=== PATIENT | female | born 1990 | race Caucasian/White ===

== ENCOUNTER → 2017-10-26 | Outpatient (REF) ==
[2017-10-26 12:42] LABS: RUBELLA IgG QUALITATIVE IMMUNE (IMMUNE)
[2017-10-27 10:14] LABS: RUBEOLA IgG ANTIBODY <25.0 AU/mL (Immune >29.9)
== END ==
LOC: M LAB 10:57
DX: Z02.89 Encounter for other administrative examinations (principal)